=== PATIENT | female | born 1970 | race Caucasian/White ===

== ENCOUNTER → 2018-10-19 | Outpatient (CLI) | payer OTHER | LOC: COL.VAS 10-10 13:15 | DX: N18.4 Chronic kidney disease, stage 4 (severe) (principal) | CPT/HCPCS: G0365 ==

== ENCOUNTER 2019-05-29 05:26 | Day surgery (SDC) | payer OTHER ==
[~2019-05-29] VITALS: Ht 175.3 cm; Wt 107.5 kg
[2019-05-29 05:56] VITALS: BP 164/105; PULSE 99; TEMP 97.3
[2019-05-29] MEDS ORDERED: WOMEN'S DAILY1 TAB PO (06:16)
[2019-05-29] MEDS ORDERED: CALTRATE-600 W600 MG PO (06:16)
[2019-05-29] MEDS ORDERED: SODIUM BICARBO650 MG PO (06:18)
[2019-05-29] MEDS ORDERED: COZAAR 25MG25 MG/TAB PO (06:18)
[2019-05-29] MEDS ORDERED: LIPITOR 40MG TA40 MG PO (06:18)
[2019-05-29] MEDS ORDERED: ABILIFY 10MG TA10 MG PO (06:19)
[2019-05-29] MEDS ORDERED: LYRICA 75MG CAP75 MG PO (06:19)
[2019-05-29] MEDS ORDERED: WELLBUTRIN SR150 M1 PO (06:20)
[2019-05-29] MEDS ORDERED: ATARAX 25MG25 MG/TAB PO (06:20)
[2019-05-29] MEDS ORDERED: TOPROL XL 25MG25 MG PO (06:21)
[2019-05-29] MEDS ORDERED: MELATIN 3 MG-11 TAB PO (06:21)
[2019-05-29] MEDS ORDERED: VICTOZA6 MG/ML SQ (06:21)
[2019-05-29] MEDS ORDERED: VITAMINC1000TA PO (06:22)
[2019-05-29] MEDS ORDERED: VITAMIN B COMPL1 SGL PO (06:22)
--- NOTE | 2019-05-29 06:27 | NUR ---
Ilana Colon CRNA was notified of the patient's increased blood pressure upon admission and that the patient did not take her morning medications including her blood pressure medication. He verbalized understanding and has no further orders at this time.
[2019-05-29 06:47] LABS: CALCIUM 9.4 mg/dL (8.4-10.2); CREATININE, serum 3.24 (0.52-1.25)
[2019-05-29 09:30] VITALS: BP 91/60; PULSE 86; TEMP 97.7
--- NOTE | 2019-05-29 09:30 | NUR ---
The patient arrived back to [facility] from the operating room at this time. The patient appears drowsy but arouses easily her name. The patient's fistula site has a slight thrill present upon palpation. Post operative vital signs were started at this time. The patient's was brought back to be at her bedside. Mar set dressing to her left wrist appears clean, dry, and intact. Will continue to monitor the patient.
[2019-05-29] MEDS ORDERED: NORCO 325 MG-51 TAB PO (09:37)
[2019-05-29 09:45] VITALS: BP 103/65; PULSE 83
--- NOTE | 2019-05-29 09:45 | NUR ---
The patient appears more alert at this time. She requests to try some ice water at this time. remains at her bedside. The patient denies any pain or nausea at this time. Will continue to monitor the patient.
[2019-05-29 10:00] VITALS: BP 120/76; PULSE 81
--- NOTE | 2019-05-29 10:00 | NUR ---
The patient appeared to tolerate the water well. Vital signs remain stabe. Will continue to monitor the patient.
[2019-05-29 10:20] VITALS: BP 118/73; PULSE 81
--- NOTE | 2019-05-29 10:20 | NUR ---
Discharge instructions were reviewed with the patient and her at this time. They both verbalized understanding and have no questions for the nurse at this time. The patient's IV to her right wrist was removed and a pressure dressing was applied to the site. The nurse instructed the patient to get dressed and notify the staff when she is ready to escorted out.
--- NOTE | 2019-05-29 10:33 | NUR ---
The patient was escorted out via wheelchair to a private vehicle by EVANGELIST Rosario. The patient's belongings and discharge paperwork were sent with her. The patient's is present to drive her home.
== END 2019-05-29 10:33 | disposition home or self-care (01) ==
LOC: SDCO 05:26
PROVIDERS: Nurse Anesthetist, Certified Registered
DX: I77.0 Arteriovenous fistula, acquired (principal); N18.4 Chronic kidney disease, stage 4 (severe); I12.9 Hypertensive chronic kidney disease with stage 1 through stage 4 chronic kidney disease, or unspecified chronic kidney disease; E11.22 Type 2 diabetes mellitus with diabetic chronic kidney disease; D64.9 Anemia, unspecified; E11.9 Type 2 diabetes mellitus without complications; G43.909 Migraine, unspecified, not intractable, without status migrainosus; F41.8 Other specified anxiety disorders; F20.9 Schizophrenia, unspecified; Z79.899 Other long term (current) drug therapy; Z79.891 Long term (current) use of opiate analgesic; Z83.3 Family history of diabetes mellitus; Z80.42 Family history of malignant neoplasm of prostate; Z80.8 Family history of malignant neoplasm of other organs or systems; Z82.49 Family history of ischemic heart disease and other diseases of the circulatory system
CPT/HCPCS: J0690; J1644; J2250; J2405; J2704; J3010; J7030

== ENCOUNTER → 2019-07-19 | Outpatient (CLI) | payer OTHER ==
[~2019-07-19] MED LIST: ABILIFY 10MG TA10 MG PO; ATARAX 25MG25 MG/TAB PO; CALTRATE-600 W600 MG PO; COZAAR 25MG25 MG/TAB PO; LIPITOR 40MG TA40 MG PO; LYRICA 75MG CAP75 MG PO; MELATIN 3 MG-11 TAB PO; NORCO 325 MG-51 TAB PO; SODIUM BICARBO650 MG PO; TOPROL XL 25MG25 MG PO; VICTOZA6 MG/ML SQ; VITAMIN B COMPL1 SGL PO; VITAMINC1000TA PO; WELLBUTRIN SR150 M1 PO; WOMEN'S DAILY1 TAB PO
== END ==
LOC: COL.VAS 13:49
DX: T82.868A Thrombosis due to vascular prosthetic devices, implants and grafts, initial encounter (principal); N18.4 Chronic kidney disease, stage 4 (severe)
CPT/HCPCS: G0365

== ENCOUNTER 2019-09-11 08:53 | Day surgery (SDC) | payer OTHER ==
[~2019-09-11] VITALS: Ht 175.3 cm; Wt 110.5 kg
[2019-09-11 09:41] VITALS: BP 119/77; PULSE 104; TEMP 97.4
[2019-09-11] MEDS ORDERED: LUNESTA2 MG PO (10:01)
[2019-09-11 10:02] LABS: CALCIUM 9.1 mg/dL (8.4-10.2); CREATININE, serum 3.47 (0.52-1.25)
[2019-09-11 13:39] VITALS: BP 80/52; PULSE 77; TEMP 97.7
--- NOTE | 2019-09-11 13:39 | NUR ---
PATIENT TRANSPORTED PER CART FROM OR TO BAY 2 ACCOMPANIED BY OR STAFF. MONITORS APPLIED. VSS. PATIENT ON ROOM AIR. PATIENT ALERT AND TALKING WITH STAFF. VERBAL REPORT RECEIVED. AV FISTULA SITE --CLEAN, DRY AND INTACT. FAINT BRUIT HEARD PER STETHOSCOPE. ACCU CHECK -- 173 AT 1353 PM.
[2019-09-11] MEDS ORDERED: NORCO 325 MG-51 TAB PO (13:41)
[2019-09-11 13:55] VITALS: BP 94/65; PULSE 95
--- NOTE | 2019-09-11 13:55 | NUR ---
VSS. PATIENT EATING MUFFIN AND DRINKING DIET PEPSI. PATIENT DENIES DISCOMFORT AND NAUSEA. AT BEDSIDE TALKING WITH PATIENT.
[2019-09-11 14:15] VITALS: BP 103/71; PULSE 110
--- NOTE | 2019-09-11 14:15 | NUR ---
VSS. PATIENT TALKING ON PHONE. AT BEDSIDE. VOICES NO CONCERNS.
--- NOTE | 2019-09-11 14:30 | NUR ---
VSS. PATIENT DENIES DISCOMFORT AND PAIN. PATIENT AMBULATES WITH STAND BY ASSIST TO BATHROOM. VOIDS WITHOUT PROBLEMS. 1444 IV SITE DC'D INTACT, PRESSSURE AND BANDAID APPLIED. PATIENT CHANGES INTO STREET CLOTHES. 1450 DISCHARGE INSTRUCTIONS GIVEN VERBAL AND WRITTEN. QUESTIONS ANSWERED AND PATIENT VOICES UNDERSTANDING. 1455 PATIENT DISCHARGED PER W/C ACCOMPANIED BY [facility] STAFF TO PRIVATE [facility].
[2019-09-11 14:45] VITALS: BP 103/64; PULSE 108
== END 2019-09-11 14:55 | disposition home or self-care (01) ==
LOC: SDCO 08:53
PROVIDERS: Nurse Anesthetist, Certified Registered
DX: E11.22 Type 2 diabetes mellitus with diabetic chronic kidney disease (principal); I12.0 Hypertensive chronic kidney disease with stage 5 chronic kidney disease or end stage renal disease; N18.6 End stage renal disease; E11.40 Type 2 diabetes mellitus with diabetic neuropathy, unspecified; Z79.84 Long term (current) use of oral hypoglycemic drugs; E78.5 Hyperlipidemia, unspecified; Z87.891 Personal history of nicotine dependence; Z88.1 Allergy status to other antibiotic agents; Z79.899 Other long term (current) drug therapy
CPT/HCPCS: J0690; J1644; J2370; J2704; J3010; J7030

== ENCOUNTER → 2019-10-11 | Outpatient (CLI) | payer OTHER ==
[~2019-10-11] MED LIST changes: +LUNESTA2 MG PO
== END ==
LOC: COL.VAS 10-10 09:00
DX: N18.4 Chronic kidney disease, stage 4 (severe) (principal); Z98.890 Other specified postprocedural states

== ENCOUNTER 2020-04-22 10:40 | Day surgery (SDC) | payer OTHER ==
[~2020-04-22] VITALS: Ht 175.3 cm; Wt 101.8 kg
[2020-04-22] VITALS (7 sets, daily range): BP systolic 90–138; BP diastolic 54–96; PULSE 99–111; TEMP 97.7–98
[2020-04-22] MEDS ORDERED: VELTASSA16.8 GM PO (11:19)
--- NOTE | 2020-04-22 11:54 | NUR ---
Patient's HR is 111 and BP 138/96 on pre-op admission. She denies any pain or dizziness, or other symptoms. She is a dialysis patient. This information is reported to Francisco Orona CRNA, who comes to the bedside to assess the patient.
--- NOTE | 2020-04-22 15:05 | NUR ---
Patient arrives to [facility] 1 via cart, accompanied by TRANSPORT NURSE [place]. She is sleeping. She easily awakens to voice. Monitoring is applied - VSS on room air. HR is elevated, as it was pre-op. Her family is not at the bedside and not in the waiting room. Dr. Ceron calls her .
--- NOTE | 2020-04-22 15:05 | NUR ---
Surgical sites x2 are clean/dry/glue intact. No thrill/bruit is noted. Neurovascular assessment is WNL on LUE.
[2020-04-22] MEDS ORDERED: NORCO 325 MG-51 TAB PO (15:10)
--- NOTE | 2020-04-22 15:15 | NUR ---
VSS on room air. Patient remains sleeping, easily awakens to voice.
--- NOTE | 2020-04-22 15:30 | NUR ---
VSS on room air. Patient easily awakens to voice. She denies any pain or nausea.
--- NOTE | 2020-04-22 15:45 | NUR ---
Patient is more alert. She denies pain, nausea, or need.
--- NOTE | 2020-04-22 16:00 | NUR ---
Patient is awake. She is oriented. She denies pain or nausea. She is offered and receives water and apple sauce to eat.
--- NOTE | 2020-04-22 16:30 | NUR ---
VSS. Tolerated PO well. Neurovascular assessment remains WNL. Her spouse is called for a ride and can come at 1700.
--- NOTE | 2020-04-22 17:05 | NUR ---
Patient has met discharge criteria. Discharge instructions are discussed. She denies any questions and verbalizes understanding. PIV is removed with catheter intact and hemostasis achieved. She is escorted to the exit via wheelchair by staff and discharged to home with ride in private vehicle [id number].
== END 2020-04-22 17:05 | disposition home or self-care (01) ==
LOC: SDCO 10:40
DX: I12.9 Hypertensive chronic kidney disease with stage 1 through stage 4 chronic kidney disease, or unspecified chronic kidney disease (principal); E11.22 Type 2 diabetes mellitus with diabetic chronic kidney disease; N18.4 Chronic kidney disease, stage 4 (severe); D63.1 Anemia in chronic kidney disease; F41.9 Anxiety disorder, unspecified; F32.9 Major depressive disorder, single episode, unspecified; F20.9 Schizophrenia, unspecified; Z20.828 Contact with and (suspected) exposure to other viral communicable diseases; Z87.891 Personal history of nicotine dependence; Z79.899 Other long term (current) drug therapy; Z88.1 Allergy status to other antibiotic agents; Z88.2 Allergy status to sulfonamides; Z98.84 Bariatric surgery status
CPT/HCPCS: C1768; J0690; J1644; J2250; J2405; J2704; J3010; J7030

== ENCOUNTER 2023-05-19 08:50 | Day surgery (SDC) | payer OTHER ==
[~2023-05-19] VITALS: Ht 175.3 cm; Wt 99.1 kg
[~2023-05-19 08:50] MED LIST changes: +ALLEGRA 180MG180 MG PO; +B-12 500 MCG PO; +COUMADIN 5MG5 MG/TAB PO; +COZAAR 50MG50 MG/TAB PO; +TRULICITY1.5 MG/0.5 SQ; +VELTASSA16.8 GM PO
[2023-05-19 09:53] LABS: CALCIUM 9.2 mg/dL (8.4-10.2); CREATININE, serum 4.54 mg/dL (0.57-1.11)
[2023-05-19 09:57] VITALS: BP 126/82; PULSE 86; TEMP 97.2
[2023-05-19] MEDS ORDERED: NORCO 325 MG-51 TAB PO (12:22)
[2023-05-19 12:50] VITALS: BP 130/69; PULSE 80; TEMP 97.2
[2023-05-19 13:05] VITALS: BP 127/72; PULSE 80
[2023-05-19 13:20] VITALS: BP 120/67; PULSE 76
[2023-05-19 13:35] VITALS: BP 129/71; PULSE 80
--- NOTE | 2023-05-19 14:10 | NUR ---
1250 RETURNS TO ROOM 7 PER CART. AWAKE, ALERT. RESP UNLABORED. HOB ELEVATED 40 DEGREES. VITAL SIGNS OBTAINED. ABD SOFT, INCISION 4 SITES WITHOUT REDNESS OR DRAINAGE. REPORTS MILD DISCOMFORT. DENIES NEED FOR PAIN MED. CALL LIGHT AT SIDE 1300 IN ROOM 1315 HOB ELEVATED 80 DEGREES. TOLERATES PO JUICE WITHOUT NAUSEA 1340 DISCHARGE INSTRUCTIONS REVIEWED. PATIENT VERBALIZES UNDERSTANDING. COPY PROVIDED IN DISCHARGE FOLDER. 1350 SITS AT EDGE OF BED DRESSES SELF
[2023-05-19 14:56] VITALS: BP 126/74; PULSE 77; TEMP 98.4
== END 2023-05-19 14:10 | disposition home or self-care (01) ==
LOC: SDCO 08:50
PROVIDERS: Nurse Anesthetist, Certified Registered
DX: E11.22 Type 2 diabetes mellitus with diabetic chronic kidney disease (principal); N18.6 End stage renal disease; I12.0 Hypertensive chronic kidney disease with stage 5 chronic kidney disease or end stage renal disease; Z99.2 Dependence on renal dialysis; Z79.01 Long term (current) use of anticoagulants; Z79.84 Long term (current) use of oral hypoglycemic drugs; Z68.32 Body mass index [BMI] 32.0-32.9, adult
CPT/HCPCS: C1750; J0690; J1100; J2405; J2704; J3010; J7030

== ENCOUNTER → 2023-06-09 | Outpatient (CLI) | payer OTHER | LOC: COL.RAD 11:41 | DX: T82.49XA Other complication of vascular dialysis catheter, initial encounter (principal) ==

== ENCOUNTER 2023-07-05 06:57 | Day surgery (SDC) | payer OTHER ==
[~2023-07-05] VITALS: Ht 172.7 cm; Wt 96.1 kg
[2023-07-05 07:40] VITALS: BP 141/87; PULSE 96; TEMP 98.1
--- NOTE | 2023-07-05 08:24 | NUR ---
PATIENT AMBULATED TO BAY 8 WITH STEADY GAIT. ALERT AND ORIENTED X4. PATIENT STATED UNDERSTANDING OF PROCEDURE. CONSENTS SIGNED. ASSESSMENT COMPLETED. 20G IV STARTED IN RIGHT AC. BMP DRAWN OFF OF IV AND SENT TO LAB. NS INFUSING WITHOUT DIFFICULTIES. WARM BLANKET PROVIDED. NO FURTHER NEEDS NOTED. RESTING IN COT. CALL LIGHT IN REACH.
[2023-07-05 08:35] LABS: CALCIUM 8.7 mg/dL (8.4-10.2); CREATININE, serum 3.79 mg/dL (0.57-1.11); POTASSIUM 3.6 mmol/L (3.5-4.5)
[2023-07-05] MEDS ORDERED: DOXYCYCLINE 10100 MG PO (09:49)
[2023-07-05 10:25] VITALS: BP 129/64; PULSE 78; TEMP 97.1
[2023-07-05 10:40] VITALS: BP 123/68; PULSE 80
[2023-07-05 10:55] VITALS: BP 127/72; PULSE 80
--- NOTE | 2023-07-05 11:15 | NUR ---
1025 RETURNS TO ROOM 8 PER CART. AWAKE, ALERT. RESP UNLABORED. HOB ELEVATED 40 DEGREES. VITAL SIGNS OBTAINED. ABD SOFT. LAP INCISION SITES WITHOUT REDNESS OR DRAINAGE. CATHETER SITE INTACT WITHOUT DRAINAGE, SLIGHT REDNESS. REPORTS MILD DISCOMFORT. CALL LIGHT AT SIDE 1040 TOLERATES PO WATER WITHOUT NAUSEA. 1050 DISHARGE INSTRUCTIONS REVIEWED. PATIENT VERBALIZES UNDERSTANDING. COPY PROVIDED IN DISCHARGE FOLDER 1100 SITS ON EDGE OF CART DRESSES SELF.
[2023-07-05 12:16] VITALS: BP 127/75; PULSE 80; TEMP 97
[2023-07-06] MEDS ORDERED: NORCO 325 MG-51 TAB PO (11:12)
== END 2023-07-05 11:15 | disposition home or self-care (01) ==
LOC: SDCO 06:57
PROVIDERS: Nurse Anesthetist, Certified Registered
DX: T85.611A Breakdown (mechanical) of intraperitoneal dialysis catheter, initial encounter (principal); I12.0 Hypertensive chronic kidney disease with stage 5 chronic kidney disease or end stage renal disease; N18.6 End stage renal disease; E11.22 Type 2 diabetes mellitus with diabetic chronic kidney disease; Z79.84 Long term (current) use of oral hypoglycemic drugs; Z79.899 Other long term (current) drug therapy
CPT/HCPCS: J0690; J1100; J1920; J2405; J2704; J3010; J7030

== ENCOUNTER 2023-09-16 07:32 | Day surgery (SDC) | payer OTHER ==
[~2023-09-16] VITALS: Ht 175.3 cm; Wt 85.0 kg
[~2023-09-16 07:32] MED LIST changes: +APRESOLINE 10MG10 MG PO; +DOXYCYCLINE 10100 MG PO; +Famotidine 20 MG TAB PO SCH; +LR 1,000 ML IV SCH; +Metoclopramide 10 MG TAB PO SCH
[2023-09-16 08:04] VITALS: BP 127/80; PULSE 90; TEMP 97.3
[2023-09-16] MEDS ORDERED: REGLAN 10MG10 MG/TAB PO (08:09)
[2023-09-16] MEDS ORDERED: BACTROBAN 22GM22 GM TP (08:09)
[2023-09-16] MEDS ORDERED: GENTAMICIN TOPI15 GM TP (08:09)
--- NOTE | 2023-09-16 08:25 | NUR ---
The patient ambulated back to [facility] independently using a steady gait and appeared to tolerate the activity well. Vital signs obtained. Consent signed. 18G IV started in right hand with one stick, LR Infusing without difficulty. Blood obtained from IV start for lab as ordered and accucheck with a result of 93. Assessment completed. Home medications reconcilled. Call light is within reach. Family brought back to be at her bedside. Warm blanket provided. Denies any further needs at this time.
[2023-09-16] MEDS ORDERED: Vecuronium 10 MG VIAL IV ONE (08:49)
[2023-09-16] MEDS ORDERED: fentaNYL 50 MCG/ML 2 ML VIAL ONE (08:50)
[2023-09-16 08:52] LABS: CREATININE, serum 3.99 mg/dL (0.57-1.11); POTASSIUM 4.3 mmol/L (3.5-4.5)
[2023-09-16] MEDS ORDERED: Meperidine 50 MG/ML 1 ML VIAL IV PRN (09:30)
[2023-09-16] MEDS ORDERED: fentaNYL 50 MCG/ML 2 ML VIAL IV PRN (09:30)
[2023-09-16] MEDS ORDERED: Ondansetron 4 MG/2 ML VIAL IV PRN ×2 (09:30→11:00)
[2023-09-16] MEDS ORDERED: droPERidol 2.5 MG/ML 2 ML VIAL IV PRN (09:30)
[2023-09-16] MEDS ORDERED: hydrALAZINE 20 MG/ML 1 ML VIAL IV PRN (09:30)
[2023-09-16] MEDS ORDERED: dexAMETHasone 10 MG/ML VIAL ONE (10:26)
[2023-09-16] MEDS ORDERED: Ondansetron 4 MG/2 ML VIAL ONE (10:26)
[2023-09-16] MEDS ORDERED: Glycopyrrolate 0.2 MG/ML 1 ML VIAL ONE (10:36)
[2023-09-16] MEDS ORDERED: Acetaminophen 325 MG TAB PO PRN (11:00)
[2023-09-16 11:20] VITALS: BP 123/75; PULSE 90; TEMP 97.8
[2023-09-16 11:35] VITALS: BP 124/77; PULSE 84
[2023-09-16 11:50] VITALS: BP 125/70; PULSE 78
--- NOTE | 2023-09-16 20:00 | NUR ---
[id number]: PT TO [facility]OV[facility] BAY 2 FROM PACU S/P PD CATH REMOVAL AND ABD WOUND I&D A&O, PLACED ON MONITOR, VSS ON RA, LIMB ALERT ON LUE (OLD FISTULAS X 3) RECEIVED REPORT AND ASSUMED CARE OF PT FROM SELMA MURDOCK AT BEDSIDE PROVIDED FOOD/FLUIDS, TOLERATING WELL PT HAS REMAINED A&O, NAD, VSS ON RA, TOLERATING PO, IS WITHOUT SIGNIFICANT COMPLAINT, WITH STEADY GAIT/SAFE TRANSFER BY END OF STAY IV D/C'D. D/C INSTRUCTIONS, FOLLOW UP REVIEWED AND HANDED TO PT. ALL QUESTIONS AND CONCERNS ADDRESSED TO PT SATISFACTION. TAKEN TO EXIT VIA W/C WITH ALL BELONGINGS AND PAPERWORK IN HAND, ASSISTED INTO PASSENGER SEAT OF POV. SPOUSE TO DRIVE HOME.
== END 2023-09-16 12:00 | disposition home or self-care (01) ==
LOC: SDCO 07:32
PROVIDERS: Surgery
DX: T85.611A Breakdown (mechanical) of intraperitoneal dialysis catheter, initial encounter (principal); I12.0 Hypertensive chronic kidney disease with stage 5 chronic kidney disease or end stage renal disease; N18.6 End stage renal disease; E66.01 Morbid (severe) obesity due to excess calories; Z79.899 Other long term (current) drug therapy
CPT/HCPCS: J0665; J0690; J1100; J2405; J2704; J3010; J7120

== ENCOUNTER 2024-02-23 07:27 | Day surgery (SDC) | payer OTHER ==
[~2024-02-23] VITALS: Ht 175.3 cm; Wt 91.4 kg
[~2024-02-23 07:27] MED LIST changes: +BACTROBAN 22GM22 GM TP; +COUMADIN 3MG3 MG/TAB PO; -Famotidine 20 MG TAB PO SCH; +GENTAMICIN TOPI15 GM TP; -Metoclopramide 10 MG TAB PO SCH; +REGLAN 10MG10 MG/TAB PO
[2024-02-23] MEDS ORDERED: fentaNYL 50 MCG/ML 2 ML VIAL ONE (07:41)
[2024-02-23] MEDS ORDERED: PHOS LO (08:02)
[2024-02-23] MEDS ORDERED: AURYXIA1 GM PO (08:02)
[2024-02-23] MEDS ORDERED: Topical Skin Adhesive 1 EACH (1 ML) TOP ONE (08:40)
[2024-02-23 08:47] VITALS: BP 138/79; PULSE 83; TEMP 97.8
[2024-02-23 09:41] LABS: PROTHROMBIN TIME 10.7 SECONDS (9.7-12.8)
[2024-02-23 09:42] LABS: CALCIUM 9.8 mg/dL (8.4-10.2); CREATININE, serum 5.26 mg/dL (0.57-1.11)
[2024-02-23] MEDS ORDERED: Thrombin Human (Recombinant) 5,000 UNITS VIAL TP ONE (10:55)
[2024-02-23] MEDS ORDERED: Gelatin Sponge,Absorbable Size 100 SPONGE TP ONE (10:55)
[2024-02-23 11:10] VITALS: BP 106/67; PULSE 73; TEMP 97.6
[2024-02-23] MEDS ORDERED: Acetaminophen 325 MG TAB PO PRN (11:15)
[2024-02-23] MEDS ORDERED: Ondansetron 4 MG/2 ML VIAL IV PRN (11:15)
[2024-02-23 11:25] VITALS: BP 111/66; PULSE 16
[2024-02-23 11:40] VITALS: BP 139/72; PULSE 80
--- NOTE | 2024-02-23 12:00 | NUR ---
1110-PT TO BAY 8 PER CART FROM OR. REPORT RECEIVED FROM MACHINE OPERATOR CANE CUTTER AND COLD MILL OPERATOR. VS OBTAINED. PT RESTING COMFORTABLY. PT DENIES ANY NEEDS AT THIS TIME. 1120-PT RESTING NO CHANGES. 1130-PT TOLERATING WATER AND MUFFINS. 1140-IV DC'D AT THIS TIME. 1145-DISCHARGE EDUCATION COMPLETED WITH PT AND HER FAMILY. VERBALIZED UNDERSTANDING OF HOME AND FOLLOW UP CARE. ALL QUESTIONS ANSWERED. DISCHARGE PAPERWORK GIVEN TO PT. PT ABLE TO DRESS SELF WITHOUT ASSISTANCE. 1200-PT OFF UNIT PER WHEELCHAIR. PT DISCHARGED TO HOME WITH FAMILY PER PERSONAL VEHICLE.
== END 2024-02-23 12:00 | disposition home or self-care (01) ==
LOC: SDCO 07:27
PROVIDERS: Surgery
DX: I12.0 Hypertensive chronic kidney disease with stage 5 chronic kidney disease or end stage renal disease (principal); N18.6 End stage renal disease; I70.201 Unspecified atherosclerosis of native arteries of extremities, right leg; E11.51 Type 2 diabetes mellitus with diabetic peripheral angiopathy without gangrene; E11.22 Type 2 diabetes mellitus with diabetic chronic kidney disease; Z79.899 Other long term (current) drug therapy; Z79.01 Long term (current) use of anticoagulants; Z79.85 Long-term (current) use of injectable non-insulin antidiabetic drugs
CPT/HCPCS: J0665; J0690; J1644; J2704; J2765; J3010; J7120